=== PATIENT | male | born 1980 | race Caucasian/White ===

== ENCOUNTER 2017-09-11 10:25 | Emergency (ER) | payer OTHER ==
[~2017-09-11] VITALS: Ht 175.3 cm; Wt 85.3 kg
[2017-09-11 10:37] VITALS: BP 122/80; Ht 175.3 cm; Wt 85.3 kg
== END 2017-09-11 14:09 | disposition home or self-care (01) ==
LOC: ED 10:25
DX: J20.9 Acute bronchitis, unspecified (principal); Z77.22 Contact with and (suspected) exposure to environmental tobacco smoke (acute) (chronic)
CPT/HCPCS: 36415; 36600